=== PATIENT | male | born 1955 | race Caucasian/White ===

== ENCOUNTER 2024-02-10 12:01 | Observation (INO) ==
[2024-02-10] MEDS: Iodixanol (CONTRAST) 320 MG/ML 100 ML SDV IV ONE (15:52)
[2024-02-10] MEDS: Pantoprazole VIAL 40 MG VIAL IV ONE (16:03)
[2024-02-10] MEDS ORDERED: Albuterol HFA INHALER 8 gm MDI INH PRN (16:27)
[2024-02-10] MEDS: Morphine 2 MG/ML SYRINGE IV PRN (17:33)
[2024-02-10] MEDS: Metoprolol Tartrate 5 mg VIAL 5 ml VIAL (1 mg/ml) IV SCH (18:33)
[2024-02-10] MEDS: Furosemide 20 mg/2 ml IV VIAL IV ONE (18:33)
[2024-02-10] MEDS: Ondansetron 4 mg VIAL 2 MG/ML 2 ml VIAL IV PRN (23:51)
[2024-02-10] MEDS: Pantoprazole VIAL 40 MG VIAL IV SCH (23:55)
[2024-02-11] MEDS: Levothyroxine 100 MCG/5 ML VIAL IV SCH (06:02)
[2024-02-11] MEDS: SPIRIVA Respimat (tiotropium) 2.5 mcg/inh Inhaler INH SCH (09:02)
[2024-02-11 11:21] LABS: ABS Basophils 0.1 10^3/uL (0.0-0.1); ABS Eosinophils 1.3 10^3/uL (0.0-0.5); ABS Lymphocytes 1.2 10^3/uL (1.0-4.8); ABS Monocytes 0.9 10^3/uL (0.0-1.1); Eosinophil % 11.5 %; Hematocrit 37.7 % (38-53); Hemoglobin 12.3 g/dL (13.2-16.3); Lymphocyte % 10.8 %; Mean Corpuscular Hemoglobin 30.2 pg (27-33); Mean Corpuscular Hgb Conc 32.6 g/dL (31-36); Mean Corpuscular Volume 92.7 fL (80-97); Mean Platelet Volume 7.3 fL (7.5-11.2); Platelet Count 339 10^3/uL (150-450); Red Blood Count 4.07 10^6/uL (4.06-5.63); Red Cell Distribution Width 14.6 % (12-17); White Blood Count 11.6 10^3/uL (3.6-10.2)
[2024-02-11 12:02] LABS: Calcium 8.8 mg/dL (8.6-10.3); Creatinine, Serum 1.33 mg/dL (0.67-1.17); Magnesium 1.9 mg/dL (1.9-2.7); Phosphorus 3.5 mg/dL (2.5-5.0); Potassium 4.6 mmol/L (3.5-5.0)
[2024-02-11] MEDS ORDERED: Ondansetron 4 mg VIAL 2 MG/ML 2 ml VIAL IV PRN (13:45)
[2024-02-11] MEDS ORDERED: fentaNYL 100 mcg/2 ml 50 MCG/ML VIAL IV PRN (13:45)
[2024-02-12] MEDS: Scopolamine 1 mg/72hr PATCH TRANSDERM ONE (06:29)
[2024-02-12] MEDS: Buffered Lidocaine 1% SYRIN 1 ml INTRADERM ONE (06:29)
[2024-02-12] MEDS: Lactated Ringers 1000 ml BAG 1,000 ML IV SCH (06:30)
[2024-02-12] MEDS: Sulfur Hexaflouride MICROSPHR 25 MG VIAL IV ONE (06:30)
[2024-02-12 08:04] LABS: Hemoglobin 13.1 g/dL (13.2-16.3); Mean Corpuscular Hemoglobin 30.8 pg (27-33); Mean Corpuscular Hgb Conc 32.7 g/dL (31-36); Mean Corpuscular Volume 94.1 fL (80-97); Red Blood Count 4.25 10^6/uL (4.06-5.63); Red Cell Distribution Width 14.2 % (12-17); White Blood Count 10.7 10^3/uL (3.6-10.2)
[2024-02-12 08:52] LABS: Calcium 8.6 mg/dL (8.6-10.3); Creatinine, Serum 1.29 mg/dL (0.67-1.17); Magnesium 1.9 mg/dL (1.9-2.7); Phosphorus 3.2 mg/dL (2.5-5.0); Potassium 4.4 mmol/L (3.5-5.0); eGFR CKD-EPI 61.2 (>60)
[2024-02-12 08:59] LABS: ABS Basophils 0.1 10^3/uL (0.0-0.1); ABS Eosinophils 1.3 10^3/uL (0.0-0.5); ABS Lymphocytes 1.3 10^3/uL (1.0-4.8); ABS Monocytes 0.9 10^3/uL (0.0-1.1); ABS Neutrophils 7.1 10^3/uL (1.5-7.6); ABS Nucleated RBC 0.01 10^3/ul; Eosinophil % 11.9 %; Lymphocyte % 12.5 %; Mean Platelet Volume 7.2 fL (7.5-11.2); Nucleated Red Blood Cells % 0.1 %/100WBC (0.0-0.8); Platelet Count 292 10^3/uL (150-450)
[2024-02-12] MEDS ORDERED: Sulfur Hexaflouride MICROSPHR 25 MG VIAL ONE (09:12)
[2024-02-12] MEDS ORDERED: Propofol 10 MG/ML 20 ML BTL ONE (16:11)
[2024-02-12] MEDS ORDERED: Lidocaine 2% PF 5 ML VIAL ONE (16:11)
[2024-02-12] MEDS ORDERED: Midazolam 2 mg/2 ml VIAL 1 mg/ml 2 ml VIAL (2 mg) ONE ×2 (16:11→17:04)
[2024-02-12] MEDS ORDERED: Dexamethasone IV 4 MG/ML VIAL 1 ml VIAL ONE (16:12)
[2024-02-12] MEDS ORDERED: Ondansetron 4 mg VIAL 2 MG/ML 2 ml VIAL ONE (16:12)
[2024-02-13 06:10] LABS: ABS Lymphocytes 0.6 10^3/uL (1.0-4.8); ABS Monocytes 0.2 10^3/uL (0.0-1.1); ABS Neutrophils 7.8 10^3/uL (1.5-7.6); ABS Nucleated RBC 0.01 10^3/ul; Hematocrit 38.1 % (38-53); Hemoglobin 12.7 g/dL (13.2-16.3); Mean Corpuscular Hemoglobin 31.1 pg (27-33); Mean Corpuscular Hgb Conc 33.4 g/dL (31-36); Mean Corpuscular Volume 93.1 fL (80-97); Mean Platelet Volume 7.2 fL (7.5-11.2); Nucleated Red Blood Cells % 0.1 %/100WBC (0.0-0.8); Platelet Count 396 10^3/uL (150-450); Red Blood Count 4.09 10^6/uL (4.06-5.63); White Blood Count 8.6 10^3/uL (3.6-10.2)
[2024-02-13 08:28] LABS: Anion Gap 12 mmol/L (2-16); Blood Urea Nitrogen 18 mg/dL (6-24); CO2 Carbon Dioxide 22 mmol/L (22-32); Calcium 8.7 mg/dL (8.6-10.3); Chloride 102 mmol/L (101-111); Creatinine, Serum 1.22 mg/dL (0.67-1.17); Glucose 174 mg/dL (70-100); Sodium 136 mmol/L (135-145); eGFR CKD-EPI 65.4 (>60)
[2024-02-13 09:33] VITALS: BP 106/79
== END 2024-02-13 11:09 | disposition home or self-care (01) ==
LOC: EDHOLD 12:01 → ED 12:01 → SUATTDRO 16:26 → SSU 02-11 00:57
PROVIDERS: ADMIT Hospitalist; ATTEND Hospitalist
PROC: O.GIEGD (2024-02-12 15:20)